=== PATIENT | male | born 1935 | race Caucasian/White ===

== ENCOUNTER 2019-08-28 11:59 | Outpatient (CLI) | payer OTHER | END 2019-08-28 12:08 | disposition home or self-care (01) | LOC: LAB 11:59 | DX: R97.20 Elevated prostate specific antigen [PSA] (principal) ==

== ENCOUNTER 2019-09-21 07:18 | Outpatient (CLI) | payer OTHER | END 2019-09-21 07:27 | disposition home or self-care (01) | LOC: SONOGRAMA 07:18 | PROVIDERS: ATTEND Urology | DX: R97.20 Elevated prostate specific antigen [PSA] (principal) ==